=== PATIENT | female | born 2000 | race African-American/Black ===

== ENCOUNTER → 2022-06-21 | Emergency (ER) | payer OTHER ==
[~2022-06-21] VITALS: Ht 154.9 cm; Wt 62.1 kg
[~2022-06-21] MED LIST: IV NS 0.9% 1,000 ML IV ONE; ONDA4TAB11 PO; ONDANSETRON HCL/PF 4 MG/2 ML VIAL IV ONE; ONDANSETRON HCL/PF 4 MG/2 ML VIAL ONE
--- NOTE | 2022-06-21 02:41 | NUR ---
BIBRA FROM HOME C/O N/V LOSS OF APPETITE X2 WEEKS. REQUESTING TEST. HAS IUD. PT A/OX4. TOLERATING R/A WELL WITH NO RESP DISTRESS.
--- NOTE | 2022-06-21 02:46 | NUR ---
[employer] AT PT'S BEDSIDE
[2022-06-21 03:07] LABS: BASOPHILS % (AUTO) 0.6 % (0.0-2.0); EOSINOPHILS % (AUTO) 0.2 % (0.0-6.0); HEMATOCRIT 43 % (33-45); LYMPHOCYTES # (AUTO) 1.4 K/uL (0.8-4.8); LYMPHOCYTES % (AUTO) 27.7 % (20.0-44.0); MEAN CORPUSCULAR HGB CONC 33 g/dl (31.0-36.0); MEAN CORPUSCULAR VOLUME 96 fL (82-100); MONOCYTES # (AUTO) 0.4 K/uL (0.1-1.30); MONOCYTES % (AUTO) 8.5 % (2.0-12.0); NEUTROPHILS # (AUTO) 3.2 K/uL (1.8-8.9); PLATELET COUNT (AUTO) 266 K/uL (150-450); RED BLOOD CELL COUNT(AUTO) 4.43 MIL/uL (4.0-5.2); WHITE BLOOD COUNT (AUTO) 5.1 K/uL (4.3-11.0)
[2022-06-21 03:20] LABS: CALCIUM, SERUM 9.6 mg/dL (8.5-10.1); POTASSIUM 3.7 mmol/L (3.5-5.1)
--- NOTE | 2022-06-21 04:38 | NUR ---
Patient discharged to home in stable condition. Written and verbal after care instructions given. Patient verbalizes understanding of instruction. ambulatory with a steady gait. IV removed. Catheter intact and site benign. Pressure and 4x4 applied to site. No bleeding noted. patient picked up by clary.
[2022-06-21 04:49] VITALS: BP 119/89
== END ==
LOC: ER 02:10
DX: R11.2 Nausea with vomiting, unspecified (principal); Z79.899 Other long term (current) drug therapy
CPT/HCPCS: 99283; 96374; 96361; 85025; 80048; 36415; 84702; J2405; J7030

== ENCOUNTER 2024-09-07 09:56 | Emergency (ER) | payer SELFPAY ==
[~2024-09-07] VITALS: Ht 157.5 cm; Wt 59.0 kg
[~2024-09-07 09:56] MED LIST changes: -IV NS 0.9% 1,000 ML IV ONE; -ONDANSETRON HCL/PF 4 MG/2 ML VIAL IV ONE; -ONDANSETRON HCL/PF 4 MG/2 ML VIAL ONE
[2024-09-07 10:10] VITALS: BP 119/81; TEMP 98.6; O2SAT 98
[2024-09-07] MEDS ORDERED: MECL-159 PO (10:58)
== END 2024-09-07 11:03 | disposition home or self-care (01) ==
LOC: ER 10:01
DX: R51.9 Headache, unspecified (principal); R42 Dizziness and giddiness; Z79.899 Other long term (current) drug therapy